=== PATIENT | female | born 1995 | race Caucasian/White ===

== ENCOUNTER 2021-09-02 12:11 | Emergency (ER) | payer SELFPAY ==
[~2021-09-02] VITALS: Ht 157.5 cm; Wt 56.0 kg
[2021-09-02] MEDS ORDERED: ACETAMINOPHEN 500 MG TABLET PO ONE (13:30)
[2021-09-02] MEDS ORDERED: BACITRACIN TOPICAL OINT PACKET. TP ONE (13:30)
[2021-09-02] MEDS ORDERED: LIDOCAINE 2%/EPI 1:100,000 20 ML VIAL. INJ ONE (13:30)
[2021-09-02] MEDS ORDERED: IBUPROFEN 200 MG TABLET. PO ONE (13:30)
[2021-09-02] MEDS ORDERED: DIPHTH,PERTUSS(ACELL),TET TOX 0.5 ML DISP.SYRIN. VAX IM ONE (13:30)
[2021-09-02] MEDS ORDERED: AMOXICILLIN/K CLAV 875/125MG TABLET. PO ONE (13:30)
--- NOTE | 2021-09-02 14:47 | PHYS DOC ---
Past Medical History Past Surgical History: No Surgical History Smoking Status: Never Smoker Alcohol Use: Occasionally General Adult EDM: Chief Complaint: ANIMAL BITE HPI: HPI: Patient is a 25-year-old female presents to the emergency department complaining of dog bite wounds patient states she was walking her 1-year-old dog training him when they came across other dogs that were barking at him, patient reports she was trying to train her dog not to pay attention or bark back when he then attacked her biting her on both upper and lower extremities, patient reports she yelled for help and neighbors came out which the dog then laid next to her and then ran off back to where she lives. Patient reports the dog's immunizations are up-to-date, that the dog is never acted this way in the past. Patient reports her last tetanus immunization was greater than 5 years ago, patient reports she takes control pill only. Patient reports her last mental cycle was the first week of this month with normal duration of flow. Patient denies numbness or tingling to her extremities, reports pain at the dog bite sites. Patient denies hitting her head, denies loss of consciousness, denies visual disturbances, syncopal or near syncopal episodes, patient denies other physical complaints or physical concerns. Review of Systems: Review of Systems: 14 body systems of review of systems have been reviewed. See HPI for pertinent positives and negative responses, otherwise all other systems are negative, nonpertinent or noncontributory. Constitutional: Negative except as outlined in HPI above. Skin: Negative except as outlined in HPI above. Eyes: Negative except as outlined in HPI above. HENT: Negative except as outlined in HPI above. Respiratory: Negative except as outlined in HPI above. Cardiovascular: Negative except as outlined in HPI above. GI: Negative except as outlined in HPI above. : Negative except as outlined in HPI above. Musculoskeletal: Negative except as outlined in HPI above. Integument: Negative except as outlined in HPI above. Neurologic: Negative except as outlined in HPI above. Endocrine: Negative except as outlined in HPI above. Lymphatic: Negative except as outlined in HPI above. Psychiatric: Negative except as outlined in HPI above. Heart Score: C/O Chest Pain: No Risk Factors: Risk Factors: DM, Current or recent (<one month) smoker, HTN, HLP, family history of CAD, obesity. Risk Scores: Score 0 - 3: 2.5% MACE over next 6 weeks - Discharge Home Score 4 - 6: 20.3% MACE over next 6 weeks - Admit for Clinical Observation Score 7 - 10: 72.7% MACE over next 6 weeks - Early Invasive Strategies Current Medications: Current Medications Medications (Trade) Dose Ordered Sig/Mazin Start Time Stop Time Status Last Admin Dose Admin Acetaminophen (Tylenol) 1,000 mg 1X ONCE 09/02/21 13:30 09/02/21 13:31 DC 09/02/21 13:51 1,000 MG Amoxicillin/ Clavulanate Potassium (Augmentin 875/ 125mg) 1 tab 1X ONCE 09/02/21 13:30 09/02/21 13:31 DC 09/02/21 13:51 1 TAB Bacitracin (Bacitracin Zinc Oint Pkt) 5 pkt 1X ONCE 09/02/21 13:30 09/02/21 13:31 DC 09/02/21 13:50 5 PKT Diphtheria/ Tetanus/Acell Pertussis (Boostrix) 0.5 ml ONCE ONCE 09/02/21 13:30 09/02/21 13:31 DC 09/02/21 13:53 0.5 ML Ibuprofen (Motrin) 600 mg 1X ONCE 09/02/21 13:30 09/02/21 13:31 DC 09/02/21 13:50 600 MG Lidocaine/ Epinephrine (LIDOCAINE 2%-EPI 1:100,000 multi-dose) 20 ml 1X ONCE 09/02/21 13:30 09/02/21 13:31 DC 09/02/21 13:50 20 ML Allergies: Allergies: Allergies Coded Allergies Type Severity Reaction Last Updated Verified No Known Drug Allergies 09/02/21 No Physical Exam: PE: Constitutional: Well developed, well nourished, no acute distress, non-toxic appearance. 25-year-old female is tearful otherwise in no apparent distress. HENT: Normocephalic, atraumatic. Eyes: Conjunctiva normal, no discharge. Neck: Normal range of motion, no stridor. Cardiovascular: No cyanosis appreciated, distal cap refill less than 2 seconds. Lungs & Thorax: Patient is in no respiratory distress, no audible adventitious lung sounds appreciated. Abdomen: Nontender, no abnormalities noted. Skin: Warm, dry, no erythema, no rash. Multiple abrasions and dog bite puncture wounds with laceration noted on extremity section. Back: No tenderness, no deformities. Extremities: No tenderness, no cyanosis, no clubbing, ROM intact, no edema. Abrasion to right anterior thigh, right hand and thumb, right lower leg has full skin thickness through adipose tissue with muscle fascia visualized 6 cm laceration lateral aspect mid tib-fib area, bleeding controlled, 2 puncture wounds on the medial side at same height of lateral laceration measuring 1 cm and next to measuring 0.8 cm. Bleeding controlled, left distal forearm has 3 puncture wounds to the anterior aspect, left foot near the great toe has abrasion. Full AROM/PROM of right lower extremity hip joint knee joint ankle joint and toes without difficulty. Neurologic: Alert and oriented X 3, normal motor function, normal sensory function, no focal deficits noted. Psychologic: Affect normal, judgement normal, mood normal. Current Patient Data: Vital Signs: Vital Signs Date Time Temp Pulse Resp B/P (MAP) Pulse Ox O2 Delivery O2 Flow Rate FiO2 09/02/21 12:11 80 18 Room Air 09/02/21 12:11 97.9 128/66 (86) 97.9 EKG: EKG: [] Radiology/Procedures: Radiology/Procedures: REASON: Midshaft lateral dog bite wound rule out foreign body PROCEDURE: TIBIA FIBULA RIGHT XR RT TIBIA+FIBULA DATE: 09/02/2021 1:31 PM INDICATION: Reason: Midshaft lateral dog bite wound rule out foreign body / Spl. Instructions: / History: COMPARISON: None. FINDINGS: Bones: There is no evidence of acute fracture. No joint dislocation is noted. Miscellaneous: No radiopaque foreign body. Soft tissue injury along the mid calf. IMPRESSION: No radiopaque foreign body. Electronically signed by: Moise Thornton MD (09/02/2021 2:42 PM) [id number] Course & Med Decision Making: Course & Med Decision Making Pertinent Labs and Imaging studies reviewed. (See chart for details) 25-year-old female, vital signs reviewed, resents emerged from concerning dog bite injuries. Physical examination consistent with patient's explanation of events, will bring patient's tetanus immunization up-to-date today in the emergency department with Tdap medication, will give p.o. pain medications, x- ray right leg to rule out foreign body and laceration sites, see laceration repair note. Patient's dog's immunizations are up-to-date. See laceration repair note. Discussed with patient stapled skin repair care at home, removal in 7 to 10 days, ice packs to the sore areas, abrasion and puncture wound care at home, strict follow-up with primary care for staple removal in 7 to 10 days, return to ER precautions and concerns were reviewed, patient verbal understanding of and is amenable to ED discharge planning. Discussed with the patient all findings and diagnostic testing as well as the need to follow-up with their primary care provider for further evaluation and treatment or return to the ED if any new or worsening symptoms. Strict return precautions were also discussed at length, the patient voiced understanding and agreement with the discharge planning. The patient was nontoxic in appearance, in no apparent distress, and hemodynamically stable at the time of disposition. Dragon Disclaimer: Dragon Disclaimer: This electronic medical record was generated, in whole or in part, using a voice recognition dictation system. Laceration Repair Lac Repair Indication: Lacerations to right leg lateral aspect measuring 6 cm, two lacerations measuring 1 cm to the medial aspect adjacent to lateral laceration site. Time: 1445 Confirmed: Patient, procedure, side, and site correct. Consent: Patient, has given verbal consent. Description/repair Procedure: The patient was placed in the appropriate position and anesthesia around the lacerations was achieved with 10 cc 2% lidocaine with epinephrine. The lateral laceration area was then vigorously irrigated with 500 cc normal saline after cleansed with Betadine solution. The laceration was closed with 3 interrupted 4-0 Vicryl underlying sutures then closed with 10 dermal marisol. Two additional lacerations of the medial aspect right leg was closed with one dermal staple on the most medial, two dermal marisol on the one just medial, all abrasions and puncture sites and staple repair sites were irrigated, cleansed, dressed with Polysporin and bandages prior to discharge Complexity: Single layer. Post procedure exam: Circulation, motor, sensory examination intact, bleeding controlled. Total repaired wound length: 8 cm. Other Items: Multiple dog puncture wounds and abrasions were cleansed and dressed that did not require suture or staple repair. The patient tolerated the procedure well. Complications: There were no complications. Performed by: Jordan Tucker, [employer] Supervision: Dr. Aleman was present for consult regarding the critical aspects of the procedure including closure and post procedure exam. Total time: 30 minutes. Departure Departure Impression: Primary Impression: Dog bite Qualified Codes: W54.0XXA - Bitten by dog, initial encounter Additional Impressions: Need for Tdap vaccination Lacerations of multiple sites of right leg Qualified Codes: S81.811A - Laceration without foreign body, right lower leg, initial encounter Multiple abrasions Disposition: HOME / SELF CARE / HOMELESS Condition: GOOD Referrals: NO PCP (PCP) Patient Instructions: Abrasions, Animal Bite, Staple Removal, Care After, Staple Wound Closure, [id number] Additional Instructions: You were seen today in the emergency department after a dog bite. This did not require rabies vaccinations as you had reported this is your dog and the dog's immunizations are up-to-date. You had suffered multiple puncture wounds and abrasions along with lacerations to your right leg that required repair. There are 10 marisol on the laceration to the outer part of your right lower leg and three marisol to lacerations to the inner part of your leg, these require removal in 7 to 10 days. Please keep clean and dry, cleanse daily with mild soap and water and apply antibiotic ointment then cover with bandage to prevent disruption of the marisol. You were started on an antibiotic to help prevent infection, however please watch for signs and symptoms of infectious process. As we discussed, cleanse all abrasions and dog bite puncture wounds daily and apply antibiotic ointment with bandages as required. Please follow-up with your primary care physician in 7 to 10 days to have the marisol removed. Please return to the emergency department for worsening symptoms or other concerns. Thank you for visiting our Emergency Department. It was a pleasure taking care of you today in the emergency department and we appreciate you trusting us with your care. If any additional problems come up don't hesitate to return to visit us. Please follow up with your primary care provider so they can plan additional care if needed and know about the problem that you had. If symptoms worsen come back to the Emergency Department. Any concerning symptoms that start such as chest pain, shortness of air, weakness or numbness on one side of the body, running high fevers or any other concerning symptoms return to the ER. Your tetanus immunization was brought up-to-date today with an medication called Tdap, please update your immunization records accordingly. An x-ray was performed of your right leg that did not show any signs of foreign bodies or broken teeth and the dog bite wounds. EMERGENCY DEPARTMENT GENERAL DISCHARGE INSTRUCTIONS Thank you for coming to [facility] Emergency Department (ED) today and trusting us with you care. We trust that you had a positive experience in our Emergency Department. If you wish to speak to the department management, you may call the Director at [phone]. YOUR FOLLOW UP INSTRUCTIONS ARE FOLLOWS: 1. Do you have a private Doctor? If you do not have a private doctor, please ask for a resource list of physicians or clinics that may be able to assist you with follow up care. 2. The Emergency Physicain has interpreted your x-rays. The X-Ray specialist will also review them. If there is a change in the findings, you will be notified in 48 hours when at all possible. 3. A lab test or culture has been done, your results will be reviewed and you will be notified if you need a change in treatment. ADDITIONAL INSTRUCTIONS AND INFORMATION: 1. Your care today has been supervised by a physician who is specially trained in emergency care. Many problems require more than one evaluation for a complete diagnosis and treatment. We recommend that you schedule your follow up appointment as recommended to ensure complete treatment of you illness or injury. If you are unable to obtain follow up care and continue to have a problem, or if your condition worsens, we recommend that you return to the ED. 2. We are not able to safely determine your condition over the phone nor are we able to give sound medical advice over the phone. For these safety reasons, if you call for medical advice we will ask you to come to the ED for further evaluation. 3. If you have any questions regarding these discharge instructions please call the ED at [phone]. SAFETY INFORMATION: In the interest of safety, wellness, and injury prevention; we encourage you to wear your sealbelt, if you smoke; quite smoking, and we encourage family to use a protective helmet for bicycling and other sporting events that present an increased risk for head injury. IF YOUR SYMPTOMS WORSEN OR NEW SYMPTOMS DEVELOP, OR YOU HAVE CONCERNS ABOUT YOUR CONDITION; OR IF YOUR CONDITION WORSENS WHILE YOU ARE WAITING FOR YOUR FOLLOW UP APPOINTMENT; EITHER CONTACT YOUR PRIMARY CARE DOCTOR, THE PHYSICIAN WHOSE NAME AND NUMBER YOU WERE GIVEN, OR RETURN TO THE ED IMMEDIATELY. Scripts Amoxicillin/Potassium Clav (AMOX TR-K CLV 875-125 MG TAB) 1 Each Tablet 1 TAB PO BID for dog bite wounds, #20 TAB 0 Refills Prov: JORDAN ADAMSON APRN 09/02/21 JORDAN ADAMSON APRN Sep 02, 2021 14:47
[2021-09-02] MEDS ORDERED: AMOX1TAB11 PO (15:39)
[2021-09-02 15:40] VITALS: BP 130/68
== END 2021-09-02 15:55 | disposition home or self-care (01) ==
LOC: ER 12:11
DX: S81.811A Laceration without foreign body, right lower leg, initial encounter (principal); W54.0XXA Bitten by dog, initial encounter; Y92.89 Other specified places as the place of occurrence of the external cause; Y93.01 Activity, walking, marching and hiking; Y99.8 Other external cause status
CPT/HCPCS: 12004; 73590; 90471; 90715; 99284; J3490